=== PATIENT | male | born 1970 | race Native Hawaiian/Other Pacific Islander ===

== ENCOUNTER 2019-10-26 09:09 | Emergency (ER) | payer SELFPAY ==
[2019-10-26 09:36] VITALS: BP 142/73
== END 2019-10-26 12:10 | disposition left against medical advice (07) ==
LOC: ED 09:09
DX: M54.9 Dorsalgia, unspecified (principal); Z53.21 Procedure and treatment not carried out due to patient leaving prior to being seen by health care provider